=== PATIENT | female | born 1995 ===

== ENCOUNTER 2022-09-12 14:41 | Emergency (ER) | payer SELFPAY ==
[~2022-09-12] VITALS: Ht 164 cm; Wt 92.0 kg
[2022-09-12] MEDS ORDERED: FAMOTIDINE 20MG/2ML IV (PEPCID) IVP SCH (14:45)
[2022-09-12] MEDS ORDERED: EPINEPHrine INJECTION 1 MG/ML AMP IM ONE (14:45)
[2022-09-12] MEDS ORDERED: LORATADINE (CLARITIN) 10 MG TAB PO ONE (14:45)
--- NOTE | 2022-09-12 14:52 | ED General ---
General Chief Complaint: Allergic Reaction Stated Complaint: ALLERGIC REACTION Source of Information: Patient Exam Limitations: No Limitations History of Present Illness Date Seen by Provider: Sep 12, 2022 Time Seen by Provider: 14:49 Initial Comments To ER by EMS from [facility] where she presented with allergic reaction. This started last night shortly after eating a piece of pizza. No history of allergic reaction to anything in the past. She is been taking Benadryl every 4 hours since this diffuse redness and itching started last night and it does temporarily help but then the symptoms returned. While at [facility] she complained of sensation of throat swelling and shortness of breath so EMS was summoned. They did give 25 mg of Benadryl in route. Replaced by [facility] called out here and gave us a report in patient history prior to her arriving here. 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 She is [id number] just moved here from [facility] a few months ago. Timing/Duration: 12-24 Hours Severity: Moderate Associated Systoms: Denies Symptoms Allergies and Home Medications Allergies Coded Allergies: No Known Drug Allergies (Unverified , 09/12/22) Patient Home Medication List Home Medication List Reviewed: Yes Review of Systems Review of Systems Constitutional: see HPI EENTM: see HPI Past [id number]-[id number] Hx Patient Social History Tobacco Use?: No Substance use?: No Alcohol Use?: No Pt feels they are or have been: No Physical Exam Vital Signs Vital Signs - First Documented 09/12/22 09/12/22 14:45 15:06 Temp 36.8 Pulse 90 Resp 18 B/P (MAP) 112/62 (79) Pulse Ox 100 O2 Delivery Nasal Cannula O2 Flow Rate 2.00 Capillary Refill : Height, Weight, BMI Height: '" Weight: lbs. oz. kg; BMI Method: General Appearance: No Apparent Distress, WD/WN, Other (Alert and oriented no distress heart rate normal at 80 sinus blood pressure 112/62 oxygen 100% room air. Respiratory rate 70. No stridor no wheezing on auscultation. No visible oropharyngeal edema. She is diffusely erythematous and pruritic.) Eyes: Bilateral Eye Normal Inspection, Bilateral Eye PERRL, Bilateral Eye EOMI HEENT: PERRL/EOMI, Normal ENT Inspection Neck: Full Range of Motion, Normal Inspection Respiratory: No Accessory Muscle Use, No Respiratory Distress Cardiovascular: Regular Rate, Rhythm, Normal Peripheral Pulses Gastrointestinal: Normal Bowel Sounds, Non Tender, Soft Extremity: Normal Capillary Refill, Normal Inspection Neurologic/Psychiatric: Alert, Oriented x3 Skin: Normal Color, Warm/Dry Progress/Results/Core Measures Suspected Sepsis SIRS Temperature: Pulse: Respiratory Rate: Laboratory Tests 09/12/22 14:45: White Blood Count 12.3H Blood Pressure / Mean: Laboratory Tests 09/12/22 14:45: Creatinine 0.88, Platelet Count 294, Total Bilirubin 0.8 Results/Orders Lab Results Laboratory Tests Test 09/12/22 14:45 Range/Units White Blood Count 12.3 H 4.3-11.0 10^3/uL Red Blood Count 5.18 H 3.80-5.11 10^6/uL Hemoglobin 15.7 11.5-16.0 g/dL Hematocrit 46 35-52 % Mean Corpuscular Volume 89 80-99 fL Mean Corpuscular Hemoglobin 30 25-34 pg Mean Corpuscular Hemoglobin Concent 34 32-36 g/dL Red Cell Distribution Width 12.0 10.0-14.5 % Platelet Count 294 130-400 10^3/uL Mean Platelet Volume 10.2 9.0-12.2 fL Immature Granulocyte % (Auto) 0 % Neutrophils (%) (Auto) 85 H 42-75 % Lymphocytes (%) (Auto) 10 L 12-44 % Monocytes (%) (Auto) 3 0-12 % Eosinophils (%) (Auto) 1 0-10 % Basophils (%) (Auto) 0 0-10 % Neutrophils # (Auto) 10.5 H 1.8-7.8 10^3/uL Lymphocytes # (Auto) 1.3 1.0-4.0 10^3/uL Monocytes # (Auto) 0.4 0.0-1.0 10^3/uL Eosinophils # (Auto) 0.1 0.0-0.3 10^3/uL Basophils # (Auto) 0.0 0.0-0.1 10^3/uL Immature Granulocyte # (Auto) 0.0 0.0-0.1 10^3/uL Neutrophils % (Manual) 89 % Lymphocytes % (Manual) 8 % Monocytes % (Manual) 1 % Eosinophils % (Manual) 2 % Toxic Granulation 2+ Blood Morphology Comment NORMAL Sodium Level 133 L 135-145 MMOL/L Potassium Level 3.7 3.6-5.0 MMOL/L Chloride Level 105 98-107 MMOL/L Carbon Dioxide Level 17 L 21-32 MMOL/L Anion Gap 11 5-14 MMOL/L Blood Urea Nitrogen 12 7-18 MG/DL Creatinine 0.88 0.60-1.30 MG/DL Estimat Glomerular Filtration Rate 93 BUN/Creatinine Ratio 14 Glucose Level 97 70-105 MG/DL Calcium Level 9.3 8.5-10.1 MG/DL Corrected Calcium 9.1 8.5-10.1 MG/DL Total Bilirubin 0.8 0.1-1.0 MG/DL Aspartate Amino Transf (AST/SGOT) 20 5-34 U/L Alanine Aminotransferase (ALT/SGPT) 29 0-55 U/L Alkaline Phosphatase 67 40-136 U/L Total Protein 7.5 6.4-8.2 GM/DL Albumin 4.2 3.2-4.5 GM/DL Serum Test, Qualitative NEGATIVE NEGATIVE My Orders Orders - KASSIDY PATEL APRN Ed Iv/Invasive Line Start (09/12/22 14:45) Hcg,Qualitative Serum (09/12/22 14:45) Comprehensive Metabolic Panel (09/12/22 14:45) Cbc And Manual Diff (09/12/22 14:45) Famotidine Injection (Pepcid Injection) (09/12/22 14:45) Loratadine Tablet (Claritin Tablet) (09/12/22 14:45) Epinephrine 1 Mg Injection (Adrenalin I (09/12/22 14:45) Dexamethasone Injection (Decadron Inje (09/12/22 14:45) Medications Given in ED Current Medications Medications Dose Ordered Sig/Yari Route Start Time Stop Time Status Last Admin Dose Admin Dexamethasone Sodium Phosphate 10 mg ONCE ONCE IV 09/12/22 14:45 09/12/22 14:48 DC 09/12/22 14:54 10 MG Epinephrine HCl 0.3 mg ONCE ONCE IM 09/12/22 14:45 09/12/22 14:48 DC 09/12/22 14:55 0.3 MG Loratadine 20 mg ONCE ONCE PO 09/12/22 14:45 09/12/22 14:48 DC 09/12/22 14:54 20 MG Vital Signs/I&O 09/12/22 09/12/22 09/12/22 09/12/22 14:45 14:55 15:06 15:23 Temp 36.8 Pulse 90 80 80 81 Resp 18 18 B/P (MAP) 112/62 (79) 112/62 112/66 (81) 109/68 (82) Pulse Ox 100 100 100 O2 Delivery Nasal Cannula O2 Flow Rate 2.00 Capillary Refill : Departure Communication (Admissions) 1602-feeling much better at this time no longer itchy and no sensation of throat closing or difficulty breathing. Her redness is nearly gone. Sister at the bedside. Aircraft Engine Installer remains with her. Will discharge to home to have her continue Claritin or Zyrtec twice daily for 1 week, add Benadryl as needed itching. Used dexamethasone here so I will not give her steroids at home. She agrees to return for any worsening symptoms. I discussed with her the possibility of a rebound allergic reaction after the effects of our epinephrine injection wear off. She agrees to be cognizant of this and return for any worsening. Impression Primary Impression: Allergic reaction Disposition: 01 HOME, SELF-CARE Condition: Improved Departure-Patient Inst. Decision time for Depature: 16:04 Referrals: SANTHOSH JORGE APRN (PCP) Primary Care Physician [facility]SHY[facility] (Family) Primary Care Physician Patient Instructions: Food Allergy Add. Discharge Instructions: 1. Return to ER for any concerns or worsening symptoms. Use Claritin or Zyrtec which you can purchase from [employer] or [employer] twice a day starting tomorrow. Do this for 1 week. If you have continued itching it is safe to add Benadryl to this mix every 4 hours as needed as well. All discharge instructions reviewed with patient and/or family. Voiced understanding. KASSIDY PATEL APRN Sep 12, 2022 14:52
[2022-09-12 15:02] LABS: BASOPHILS % (AUTO) 0 % (0-10); EOSINOPHILS # (AUTO) 0.1 10^3/uL (0.0-0.3); EOSINOPHILS % (AUTO) 1 % (0-10); HEMATOCRIT 46 % (35-52); HEMOGLOBIN 15.7 g/dL (11.5-16.0); LYMPHOCYTES # (AUTO) 1.3 10^3/uL (1.0-4.0); LYMPHOCYTES % (AUTO) 10 % (12-44); MEAN CORPUSCULAR HEMOGLOBIN 30 pg (25-34); MEAN CORPUSCULAR HGB CONC 34 g/dL (32-36); MEAN CORPUSCULAR VOLUME 89 fL (80-99); MEAN PLATELET VOLUME 10.2 fL (9.0-12.2); MONOCYTES # (AUTO) 0.4 10^3/uL (0.0-1.0); MONOCYTES % (AUTO) 3 % (0-12); NEUTROPHILS # (AUTO) 10.5 10^3/uL (1.8-7.8); NEUTROPHILS % (AUTO) 85 % (42-75); PLATELET COUNT 294 10^3/uL (130-400); WHITE BLOOD COUNT 12.3 10^3/uL (4.3-11.0)
[2022-09-12 15:08] LABS: ALBUMIN 4.2 GM/DL (3.2-4.5)
[2022-09-12 15:09] LABS: POTASSIUM 3.7 MMOL/L (3.6-5.0)
[2022-09-12 15:10] LABS: CALCIUM 9.3 MG/DL (8.5-10.1)
[2022-09-12 15:11] LABS: TOTAL PROTEIN 7.5 GM/DL (6.4-8.2)
[2022-09-12 15:13] LABS: BILIRUBIN,TOTAL 0.8 MG/DL (0.1-1.0)
[2022-09-12 15:15] LABS: CREATININE SERUM 0.88 MG/DL (0.60-1.30)
[2022-09-12 15:34] LABS: EOSINOPHILS % (MANUAL) 2 %; LYMPHOCYTES % (MANUAL) 8 %; MONOCYTES % (MANUAL) 1 %; NEUTROPHILS % (MANUAL) 89 %; RBC MORPH NORMAL; TOXIC GRANULATION/VACUOLAZATIO 2+
[2022-09-12 16:09] VITALS: BP 109/68
== END 2022-09-12 16:09 | disposition home or self-care (01) ==
LOC: ER 14:44
DX: T78.1XXA Other adverse food reactions, not elsewhere classified, initial encounter (principal)
CPT/HCPCS: 36415; 80053; 84703; 85007; 85027; 99283